=== PATIENT | female | born 1980 ===

== ENCOUNTER 2017-05-25 23:58 | Emergency (ER) | payer SELFPAY ==
[2017-05-26 00:04] VITALS: BMI 24.7
[2017-05-26 00:06] VITALS: PULSE 87; RESP 16; TEMP 98.4; O2SAT 99
[2017-05-26 00:20] VITALS: BP 143/91
--- NOTE | 2017-05-26 00:40 | ED PDOC ---
HPI: Eye Injury/Pain Time Seen by Provider: 05/26/17 00:10 Chief Complaint (Nursing): Eye Problem Chief Complaint (Provider): Eye Problem History Per: Patient History/Exam Limitations: no limitations Onset/Duration Of Symptoms: Days (x2) Current Symptoms Are (Timing): Still Present Injury To Eye?: No Wears Contact Lens?: No Associated Symptoms: Discharge From Eye Additional Complaint(s): 37 year old female presents to ED with complaints of atraumatic left eye problems x2 days and has no relevant past medical history. (+) redness and drainage. (-) visual contacts and headache. Patient denies wearing contacts. PCP: Renetta Bell Past Medical History Reviewed: Historical Data, Nursing Documentation, Vital Signs Vital Signs: Last Vital Signs Temp 98.4 F 05/26/17 00:04 Pulse 87 05/26/17 00:04 Resp 16 05/26/17 00:04 BP 143/91 H 05/26/17 00:17 Pulse Ox 99 05/26/17 00:04 - Medical History PMH: Diabetes (Gestational) Denies: No Chronic Diseases, Chronic Kidney Disease - Family History Family History: States: No Known Family Hx - Social History Current smoker - smoking cessation education provided: No Ex-Smoker (has not smoked in the last 12 months): No Alcohol: None Drugs: Denies - Home Medications Home Medications: Ambulatory Orders Medication Instructions Recorded No122/Iron/Folic Acid 1 tab .ROUTE DAILY 07/20/16 [ Multi Tablet] Ibuprofen [Motrin] 600 mg PO Q6H PRN #30 tab 07/22/16 Polymyxin/Trimethoprim Sulfate 1 drop XX Q6H 10 Days 05/26/17 [Polytrim Ophth Soln] - Allergies Allergies/Adverse Reactions: Allergies Allergy/AdvReac Type Severity Reaction Status Date / Time No Known Allergies Allergy Verified 05/26/17 00:04 Review of Systems ROS Statement: Except As Marked, All Systems Reviewed And Found Negative Eyes: Positive for: Redness (left eye redness), Other (left eye drainage). Negative for: Vision Change Neurological: Negative for: Headache Physical Exam - Reviewed Nursing Documentation Reviewed: Yes Vital Signs Reviewed: Yes - Physical Exam Appears: Positive for: Non-toxic, No Acute Distress Skin: Positive for: Normal Color, Warm, Dry Eye Exam: Positive for: EOMI, PERRL, Other (left eye has clear drainage). Negative for: Normal appearance (left eye erythema) ENT: Positive for: Normal ENT Inspection Neck: Positive for: Normal Respiratory: Negative for: Respiratory Distress Neurologic/Psych: Positive for: Alert, Oriented - ECG O2 Sat by Pulse Oximetry: 99 (RA) Pulse Ox Interpretation: Normal Medical Decision Making Medical Decision Makin Initial impression: conjunctivitis Initial plan: * visual acuity test Scribe Attestation: Documented by Patricia Mao acting as a scribe for Phyllis Albrecht PA-C. MD Scribe Attestation: All medical record entries made by the Scribe were at my direction and personally dictated by me. I have reviewed the chart and agree that the record accurately reflects my personal performance of the history, physical exam, medical decision making, and the department course for this patient. I have also personally directed, reviewed, and agree with the discharge instructions and disposition. Disposition - Clinical Impression Clinical Impression: Conjunctivitis - Disposition Referrals: Renetta Bell MD [Primary Care Provider] - Disposition Time: 00:37 Condition: GOOD Prescriptions: Polymyxin/Trimethoprim Sulfate [Polytrim Ophth Soln] 1 drop XX Q6H 10 Days Instructions: Conjunctivitis (ED) Forms: [facility] (Belarusian)
== END 2017-05-26 00:55 | disposition home or self-care (01) ==
LOC: H.ER 23:58
DX: H10.9 Unspecified conjunctivitis (principal)

== ENCOUNTER 2017-08-29 06:09 | Emergency (ER) | payer OTHER ==
[2017-08-29 06:10] VITALS: BMI 24.7
[2017-08-29 06:22] VITALS: BP 126/77; PULSE 103; RESP 20; TEMP 96.1; O2SAT 96
[2017-08-29] MEDS ORDERED: Sodium Chloride 0.9% 1,000 ML IV STA (06:32)
--- NOTE | 2017-08-29 06:37 | ED PDOC ---
HPI: Abdomen Time Seen by Provider: 08/29/17 06:27 Chief Complaint (Nursing): Abdominal Pain Chief Complaint (Provider): Diarrhea History Per: Patient History/Exam Limitations: no limitations Onset/Duration Of Symptoms: Hrs (x24) Additional Complaint(s): 37 year old [place] female with no medical history, presents to the ED with estimated gestational age of 16 weeks. She reports 7 episodes of loose watery diarrhea which started yesterday. Patient feels nauseous and generally weak. Reports some stomach cramps with the diarrhea. Patient denies any associated vaginal bleeding, discharge, or urinary symptoms. PMD: Renetta Bell MD Past Medical History Reviewed: Historical Data, Nursing Documentation, Vital Signs Vital Signs: Last Vital Signs Temp 96.1 F L 08/29/17 06:18 Pulse 103 H 08/29/17 06:18 Resp 20 08/29/17 06:18 BP 126/77 08/29/17 06:18 Pulse Ox 96 08/29/17 07:09 - Medical History PMH: Diabetes (Gestational) Denies: Chronic Kidney Disease - Surgical History Surgical History: No Surg Hx - Family History Family History: States: Unknown Family Hx - Social History Current smoker - smoking cessation education provided: No Alcohol: None Drugs: Denies - Home Medications Home Medications: Ambulatory Orders Medication Instructions Recorded No122/Iron/Folic Acid 1 tab .ROUTE DAILY 07/20/16 [ Multi Tablet] Ibuprofen [Motrin] 600 mg PO Q6H PRN #30 tab 07/22/16 Polymyxin/Trimethoprim Sulfate 1 drop XX Q6H 10 Days bottle 05/26/17 [Polytrim Ophth Soln] - Allergies Allergies/Adverse Reactions: Allergies Allergy/AdvReac Type Severity Reaction Status Date / Time No Known Allergies Allergy Verified 08/29/17 06:18 Review of Systems ROS Statement: Except As Marked, All Systems Reviewed And Found Negative Constitutional: Positive for: Weakness (generalized) Gastrointestinal: Positive for: Nausea, Abdominal Pain, Diarrhea Genitourinary Female: Negative for: Dysuria, Frequency, Hematuria, Vaginal Discharge, Vaginal Bleeding Physical Exam - Reviewed Nursing Documentation Reviewed: Yes Vital Signs Reviewed: Yes - Physical Exam Appears: Positive for: Non-toxic, No Acute Distress Head Exam: Positive for: ATRAUMATIC, NORMOCEPHALIC Skin: Positive for: Normal Color, Warm, Dry Eye Exam: Positive for: EOMI, Normal appearance, PERRL Neck: Positive for: Normal, Painless ROM, Supple Cardiovascular/Chest: Positive for: Regular Rate, Rhythm. Negative for: Murmur Respiratory: Positive for: Normal Breath Sounds. Negative for: Accessory Muscle Use, Respiratory Distress Gastrointestinal/Abdominal: Positive for: Soft, Other (Gravid abdomen). Negative for: Tenderness Back: Positive for: Normal Inspection. Negative for: L CVA Tenderness, R CVA Tenderness, Vertebral Tenderness Extremity: Positive for: Normal ROM. Negative for: Pedal Edema, Deformity Neurologic/Psych: Positive for: Alert, Oriented - Laboratory Results Result Diagrams: 08/29/17 07:07 08/29/17 07:07 - ECG O2 Sat by Pulse Oximetry: 96 (RA) Pulse Ox Interpretation: Normal Medical Decision Making Medical Decision Making: Time: 6:32 Initial Impression: 37 year old female with diarrheal illness in Initial Plan: --CMP --CBC --Urinalysis --NS IV 1000 ml at 1000 mls/hr --Bentyl 20 mg PO --Reglan 10 mg IV --Pending reevaluation Time: 7:00 Patient is signed out by me to Dr. Sanchez, pending labs and reevaluation. Scribe Attestation: Documented by Freya Singh, acting as a scribe for Sivakumar Mcduffie MD Provider Scribe Attestation: All medical record entries made by the Scribe were at my direction and personally dictated by me. I have reviewed the chart and agree that the record accurately reflects my personal performance of the history, physical exam, medical decision making, and the department course for this patient. I have also personally directed, reviewed, and agree with the discharge instructions and disposition. Disposition - Clinical Impression Clinical Impression: Diarrhea - Disposition Referrals: Renetta Bell MD [Primary Care Provider] - Disposition: Transfer of Care Disposition Time: 07:00 Condition: FAIR Additional Instructions: Hydrate well. Follow up with your PCP in 2-3 days. Patient Signed Over To: Aniya Sanchez (Pending labs and reevaluation)
--- NOTE | 2017-08-29 07:09 | ED PDOC ---
- ECG O2 Sat by Pulse Oximetry: 96 (RA) Pulse Ox Interpretation: Normal Medical Decision Making Medical Decision Making: Receiving sign out: Patient signed out to me by Dr. Mcduffie at 0700 pending labs and reevaluation. Scribe Attestation: Documented by Jackelin Bella acting as a scribe for Aniya Sanchez MD. Provider Attestation: All medical record entries made by the Scribe were at my direction and personally dictated by me. I have reviewed the chart and agree that the record accurately reflects my personal performance of the history, physical exam, medical decision making, and the department course for this patient. I have also personally directed, reviewed, and agree with the discharge instructions and disposition. Disposition - Disposition Referrals: Renetta Bell MD [Primary Care Provider] - Forms: [facility] (Malagasy)
[2017-08-29 07:27] LABS: BILIRUBIN,TOTAL 1.4 mg/dl (0.2-1.3); CALCIUM 8.7 mg/dL (8.4-10.2); CARBON DIOXIDE 18 mmol/L (22-30); CHLORIDE 109 mmol/L (98-107); GFR AFRICAN-AMERICAN > 60; GLUCOSE,RANDOM 121 mg/dL (65-105); SODIUM 137 mmol/l (132-148)
[2017-08-29 07:29] LABS: ALB/GLOB RATIO 1.1 (1.0-2.1); ALKALINE PHOSPHATASE 93 U/L (38-126); ALT/SGPT 35 U/L (9-52); AST/SGOT 49 U/L (14-36); BLOOD UREA NITROGEN 11 mg/dl (7-17); POTASSIUM 4.5 MMOL/L (3.6-5.0); TOTAL PROTEIN 8.6 G/DL (6.3-8.2)
[2017-08-29 07:34] LABS: BASO % 0.2 % (0.0-2.0); EOS % 0.2 % (0.0-4.0); HEMATOCRIT 37.5 % (34.0-47.0); LYMPH # 0.4 K/uL (1.0-4.3); LYMPH % 3.6 % (20.0-40.0); MEAN CELL VOLUME 87.8 fl (81.0-99.0); MEAN CORPUSCULAR HEMOGLOBIN 28.5 pg (27.0-31.0); MEAN CORPUSCULAR HGB CONC 32.5 g/dL (33.0-37.0); MEAN PLATELET VOLUME 7.8 fl (7.2-11.7); MONO # 0.5 K/uL (0.0-0.8); MONO % 4.3 % (0.0-10.0); NEUT # 10.6 K/uL (1.8-7.0); NEUT % 91.7 % (50.0-75.0); PLATELET COUNT 216 K/uL (130-400); RED CELL DISTRIBUTION WIDTH 13.6 % (11.5-14.5); WHITE BLOOD COUNT 11.5 K/uL (4.8-10.8)
[2017-08-29 07:42] LABS: RBC URINE 4 /hpf (0-3); URINE BACTERIA RARE (<OCC); URINE BILIRUBIN NEGATIVE (NEGATIVE); URINE BLOOD SMALL (NEGATIVE); URINE COLOR YELLOW (YELLOW); URINE GLUCOSE (UA) NEG (Normal); URINE KETONE NEGATIVE (NEGATIVE); URINE LEUKOCYTE ESTERASE NEG Leu/uL (Negative); URINE PROTEIN NEGATIVE (NEGATIVE); URINE UROBILINOGEN 0.2-1.0 mg/dL (0.2-1.0); WBC URINE 1 /hpf (0-5)
[2017-08-29 10:11] LABS: EOSINOPHIL 1 % (0-7); NEUTROPHIL 85 % (42-75); TOTAL CELLS COUNTED 100
[2017-08-29 10:12] LABS: LARGE PLATELETS PRESENT
== END 2017-08-29 10:36 | disposition home or self-care (01) ==
LOC: H.ER 06:09
DX: R19.7 Diarrhea, unspecified (principal); Z33.1 Pregnant state, incidental
CPT/HCPCS: 80053; 81003; 85025; 96374; 99283; J2765; J7040

== ENCOUNTER 2017-09-30 18:02 | Emergency (ER) | payer OTHER ==
[2017-09-30 19:22] VITALS: BMI 27.3
[2017-09-30 19:53] LABS: SQUAMOUS EPITHIAL < 1 /hpf (0-5); URINE BILIRUBIN NEGATIVE (NEGATIVE); URINE BLOOD NEGATIVE (NEGATIVE); URINE CLARITY CLEAR (Clear); URINE COLOR STRAW (YELLOW); URINE GLUCOSE (UA) NEG (Normal); URINE LEUKOCYTE ESTERASE NEG Leu/uL (Negative); URINE NITRATE NEGATIVE (NEGATIVE); URINE PROTEIN NEGATIVE (NEGATIVE); URINE UROBILINOGEN 0.2-1.0 mg/dL (0.2-1.0)
[2017-10-01 02:09] VITALS: BP 113/66; PULSE 76; RESP 18; TEMP 98.3; O2SAT 99
--- NOTE | 2017-10-01 08:07 | OBHP ---
Datetime: 09/30/2017 21:02 IP Admit Plan: Discharge home Abdomen - PN: Normal Back - PN: Normal Lungs - PN: Normal Heart - PN: Normal Thyroid - PN: Normal Neurologic - PN: Normal HEENT - PN: Normal General - PN: Normal Membranes, Provider: Intact Pool Provider: Negative EGA AdmitDate IP: 20.4 Vital Signs Provider: Reviewed; Within Normal Limits Dilatation, Provider: 0 Datetime: 09/30/2017 19:00 IP Adm Impression: , intrauterine ; No Active Labor; Intact Membranes Admit Comment, IP Provider: CC: 37 yo EGA 20.4 confirmed by US presents to the ED with diffuse abodminal pain. She shares that a few hours before arriving, a dog tried to attack her, frightening h er. She immediately felt diffuse abdominal pain and the described the pain to feel like contractions. She denies falling or being bitten by the dog. LMP 05/09/2017 +: FM; -: VB, LOF, recent intercourse PNC: [facility] at [facility] POBHX: X2; GDM for second managed by diet along GHX/PAP: denies STIS, pap 04/2017: negative MHX: none. Surg: none Soc: denies: smoking, alcohol, illicit drugs Rx: PNV Allergies: NKDA Fam Hx: none PE: HEENT: normocephalic, PERRLA; AAOx3 Heart: no murmurs, regular rate and rhythm, S1, S2 normal. Lungs: clear to auscultation bilaterally, no wheezing Abdomen: nontender, gravid CVA: negative Lower extremities: negative for pitting edema Vitals: 113/66 74 bpm 37 yo EGA 20.4 confirmed by US presents to the ED with diffuse abodminal pain. -speculum exam reveals closed cervix. no pooling of fluid in the vaginal canal -UA pending. case dw Dr. Kee Roblero MD Family Medicine, [facility] - Pt seen with PGY1. Agree with note MAHNDO. No signs of acute abdomen - no trauma (just frightened/increase intraabd pressure - holding her breath)late entry for Sep 30 Pelvic Type - PN: Adequate Extremities - PN: Normal Breast - PN: Not Done FHR - Baseline A Provider: + IP Chief Complaint: Trauma/Fall Genitourinary Exam: Normal DTRs - PN: Not Done
== END 2017-09-30 19:40 | disposition home or self-care (01) ==
LOC: H.EROB2 18:02 → H.EROB 18:45 → H.EROB2 19:40
DX: O26.92 Pregnancy related conditions, unspecified, second trimester (principal); R10.2 Pelvic and perineal pain; Z3A.20 20 weeks gestation of pregnancy; Z86.32 Personal history of gestational diabetes; W54.8XXA Other contact with dog, initial encounter

== ENCOUNTER 2017-12-28 11:23 | Emergency (ER) | payer OTHER ==
[2017-12-28 12:19] VITALS: BMI 29.7
[2017-12-28] MEDS: Lactated Ringer's 1,000 ML IV SCH ×2 (12:30→13:15)
[2017-12-28 13:29] LABS: PH,URINE 6.5 (5.0-8.0); URINE BILIRUBIN NEGATIVE (NEGATIVE); URINE BLOOD NEGATIVE (NEGATIVE); URINE CLARITY Clear (Clear); URINE COLOR LIGHT YELLOW (YELLOW); URINE GLUCOSE (UA) NEGATIVE (Normal); URINE LEUKOCYTE ESTERASE NEGATIVE Leu/uL (Negative); URINE PROTEIN NEGATIVE (NEGATIVE); URINE UROBILINOGEN 0.2 mg/dL (0.2-1.0)
[2017-12-28 14:01] LABS: SPECIMEN COMMENT OPAQUE SPECIMEN
--- NOTE | 2017-12-28 16:48 | OBHP ---
Datetime: 12/28/2017 12:00 IP Adm Impression: , intrauterine ; No Active Labor IP Admit Plan: Observation/Evaluation Admit Comment, IP Provider: 37 y/o F at 33.2 weeks GA, with KELLI 02/13/18by LMP and confirmed by 12 weeks-US, c/o uterine CTX's cince 8 AM, every 5 minutes and 8/10 intensity. No LOF or VB. FM pres ent. Pt denies fever, headache, dizziness, visual disturbances, CP, SOB, urinary complaints or rash. All systems reviewed and negative except as above NKDA Meds: PNV PN Care: with Dr cMcoy at [facility]. OBHx: . 3x at _ 38.4 weeks GA. 1x spontaneous . Hx of GDM in previous pregnan cy. PMHx: elevated BP but no HTN. Pt's BP have been stable during current . PSHx: denied FHx: NC SHx: No tobacco, alcohol or rec drugs. A/P 37 y/o F with IUP at 33.2 weeks GA, with frequent CTX, need to r/o Pre-term labor. --Observation --FHT continous monitoring. --IV Fluids, 2 bolus of 1 liter LR. --Urinalysis and fibronectin ordered. Case discussed with Dr Hairston, OB conveyancer GTolentino PGY-1. Addendum: I saw and examined patient at presentation. fibronectin negative. No evidence of lab or at this time. Plan to continue observation. Marika Pelvic Type - PN: Adequate Extremities - PN: Normal Abdomen - PN: Normal Back - PN: Normal Lungs - PN: Normal Neurologic - PN: Normal HEENT - PN: Normal General - PN: Normal FHR - Baseline A Provider: 140 Membranes, Provider: Intact Contraction Comments Provider: every 6 minutes Comments, ACOG Physical Exam: Speculum exam: no gross pooling, cervix close, no traces of bleeding. Sample obtained for FFN. Pool Provider: Negative IP Hx Assessment: The History has been Reviewed and is Current EGA AdmitDate IP: 33.2 Vital Signs Provider: Reviewed IP Chief Complaint: Uterine contractions NICHD Variability Prov Fetus A: Moderate 6-25bpm NICHD Accel Fetus A IP Provider: 15X15 FHR Category Provider Fetus A: Category I Dilatation, Provider: 0 Effacement, Provider: thick Station, Provider: high
[2017-12-28] MEDS ORDERED: Lactated Ringer's 1,000 ML IV SCH (17:00)
--- NOTE | 2017-12-28 20:43 | OBPN ---
Datetime: 12/28/2017 18:37 IP Progress Plan: Discharge Contraction Comments Provider: ctxing q 2-5 mins FHR - Baseline A Provider: 135 IP Progress Note Comment: Patient evaluated, comfortable. Denies Contractions, bleeding, leaking, +F M. UA and FFN negative. Patient closed on exam - FHr = 135 mod chivo, +accels, no decels. Campos q 2-5 mins but not making cervical change. vitals nml, no evidence of chorio or labor. Discharge home, discharge instructions reviewed, pt has appt with clinic 4/5 Vital Signs Provider: Reviewed; Within Normal Limits NICHD Accel Fetus A IP Provider: 15X15 NICHD Variability Prov Fetus A: Moderate 6-25bpm Dilatation, Provider: closed Datetime: 12/28/2017 12:00 Pool Provider: Negative Membranes, Provider: Intact FHR Category Provider Fetus A: Category I Effacement, Provider: thick Station, Provider: high
--- NOTE | 2017-12-28 20:45 | OBDCSUM ---
Datetime: 12/28/2017 19:15 Discharged to, Provider: Home Follow up at, Provider: [facility] Disch Instr Activity: Normal activity Disch Instr Diet: Regular Discharge Time: 12/28/2017 19:20 Follow up in weeks, Provider: 01/01/18- Disch Referrals: None Discharge Diagnosis Prov Other: false labor
[2017-12-29 00:20] VITALS: BP 120/55; PULSE 88; RESP 16; TEMP 98.2; O2SAT 99
== END 2017-12-28 19:20 | disposition home or self-care (01) ==
LOC: H.EROB2 11:23
DX: O26.93 Pregnancy related conditions, unspecified, third trimester (principal); R10.2 Pelvic and perineal pain; Z3A.33 33 weeks gestation of pregnancy; O09.92 Supervision of high risk pregnancy, unspecified, second trimester
CPT/HCPCS: 81003; 82731; 99283; J7120

== ENCOUNTER 2018-01-25 11:27 | Emergency (ER) | payer OTHER ==
[2018-01-25 12:00] VITALS: BMI 30.4
[2018-01-25 17:20] VITALS: BP 109/68; PULSE 81; RESP 16; TEMP 98.1; O2SAT 97
--- NOTE | 2018-01-25 20:24 | OBHP ---
Datetime: 01/25/2018 12:50 IP Adm Impression: Term, intrauterine IP Admit Plan: Observation/Evaluation; Discharge home Admit Comment, IP Provider: 37 yo at 37.2 weeks GA, with KELLI 02/13/18 by LMP and confirmed b y 12 weeks-US presents to [facility] w/ c/o uterine CTX every 5-6 minutes since 8:30 am this moring. Report s +FM. No LOF or VB. Denies chest pain, dyspnea, headache, dizziness, blurry vision, nausea or vomit ing. All systems reviewed and negative except as above Allergies:NKDA Meds: PNV PN Care: with Dr Mccoy at [facility], next visit on 01/30/18 OBHx: . x 2 at _ 38.4 weeks GA. 1x spontaneous . Hx of GDM in previous pregna ncy. PMHx: elevated BP but no HTN. Pt's BP have been stable during current . PSHx: denied FHx: Denies hx DMII or CAD. SHx: No tobacco, alcohol or rec drugs. Assessment: 37 yo IUP at 37.2 weeks GA presents for uterine CTX since this morning, not in active lab or. Plan: SVE: FT/25/high Continuous heart tracing is reactive and reassuring. Pt is stable to discharge home with f/u with her doctor on 01/30/18. Labor precaution given. Pt seen and examined with on-call OB hospitalist Dr. Hairston Abdomen - PN: Normal Back - PN: Normal Lungs - PN: Normal Heart - PN: Normal Neurologic - PN: Normal HEENT - PN: Normal General - PN: Normal FHR - Baseline A Provider: 130s Membranes, Provider: Intact Contraction Comments Provider: Q6-7 MIN Comments, ACOG Physical Exam: Lower leg: Mild edema of B/L lower leg ( R>L) IP Hx Assessment: The History has been Reviewed and is Current EGA AdmitDate IP: 37.2 Vital Signs Provider: Reviewed IP Chief Complaint: Uterine contractions NICHD Variability Prov Fetus A: Minimal - Undetectable to <5bpm NICHD Accel Fetus A IP Provider: 15X15 FHR Category Provider Fetus A: Category I NICHD Decel Fetus A IP Provider: None Dilatation, Provider: FT Effacement, Provider: 25 Station, Provider: [facility]
== END 2018-01-25 13:19 | disposition home or self-care (01) ==
LOC: H.EROB2 11:27 → H.L&D 11:37 → H.EROB2 13:19
DX: O47.1 False labor at or after 37 completed weeks of gestation (principal); Z3A.37 37 weeks gestation of pregnancy; O26.93 Pregnancy related conditions, unspecified, third trimester; R10.2 Pelvic and perineal pain

== ENCOUNTER 2018-02-04 21:31 | Emergency (ER) | payer OTHER ==
[2018-02-04 22:43] VITALS: BMI 30.8
--- NOTE | 2018-02-04 22:53 | OBHP ---
Datetime: 02/04/2018 22:13 IP Adm Impression: Term, intrauterine Admit Comment, IP Provider: 38 yo with IUP at 38.5 weeks GA, with KELLI 02/13/18 by LMP and co nfirmed by 12 weeks-US presents to [facility] w/ c/o passing bloody mucus at 530 pm and ctx starting 6 pm, about 6 min apart. Denies loss of fluid reports good movement. Denies chest pain, dyspnea, headache, dizziness, blurry vision, nausea or vomiting. care: Dr Mccoy at [facility] OBHx: . x 2 at _ 38+ weeks. SAB x1. Hx of GDM in previous . PMHx: elevated BP PSHx: denied FHx: noncontributory SHx: denies tobacco, alcohol or drug use Allergies: NKDA Meds: PNV A/P: 38 yo IUP at 38+ weeks gestational age, with elevated BP SVE: 2cm, 60%, -2 Monitor FHR and toco Urinalysis Pt discussed /seen w/ Dr. Hernandez. Extremities - PN: Normal Lungs - PN: Normal Heart - PN: Normal Thyroid - PN: Not Done Neurologic - PN: Normal HEENT - PN: Normal General - PN: Normal IP Hx Assessment: The History has been Reviewed and is Current EGA AdmitDate IP: 38.5 IP Chief Complaint: Maternal discomfort Dilatation, Provider: 1 Effacement, Provider: 60 Station, Provider: -2 Genitourinary Exam: Normal
[2018-02-04 23:29] LABS: SQUAMOUS EPITHIAL 1 /hpf (0-5); URINE BACTERIA OCC (<OCC); URINE BILIRUBIN NEGATIVE (NEGATIVE); URINE BLOOD SMALL (NEGATIVE); URINE CLARITY CLEAR (Clear); URINE COLOR STRAW (YELLOW); URINE GLUCOSE (UA) NEG (Normal); URINE LEUKOCYTE ESTERASE NEG Leu/uL (Negative); URINE PROTEIN NEGATIVE (NEGATIVE); URINE UROBILINOGEN 0.2-1.0 mg/dL (0.2-1.0)
[2018-02-05 01:28] LABS: BASO % 0.3 % (0.0-2.0); EOS # 0.2 K/uL (0.0-0.7); EOS % 1.7 % (0.0-4.0); HEMOGLOBIN 11.7 g/dL (12.0-16.0); LYMPH # 2.1 K/uL (1.0-4.3); LYMPH % 22.6 % (20.0-40.0); MEAN CELL VOLUME 84.2 fl (81.0-99.0); MEAN CORPUSCULAR HEMOGLOBIN 28.4 pg (27.0-31.0); MEAN CORPUSCULAR HGB CONC 33.7 g/dL (33.0-37.0); MEAN PLATELET VOLUME 7.5 fl (7.2-11.7); MONO # 0.7 K/uL (0.0-0.8); MONO % 7.5 % (0.0-10.0); NEUT # 6.3 K/uL (1.8-7.0); NEUT % 67.9 % (50.0-75.0); RBC 4.13 Mil/uL (3.80-5.20); RED CELL DISTRIBUTION WIDTH 13.9 % (11.5-14.5); WHITE BLOOD COUNT 9.3 K/uL (4.8-10.8)
[2018-02-05 01:38] LABS: ALT/SGPT 36 U/L (9-52); AST/SGOT 29 U/L (14-36); BLOOD UREA NITROGEN 7 mg/dl (7-17); CALCIUM 9.2 mg/dL (8.4-10.2); GFR AFRICAN-AMERICAN > 60; GFR NON-AFRICAN AMERICAN > 60
[2018-02-05 09:14] VITALS: BP 118/78; PULSE 91; O2SAT 99
== END 2018-02-05 02:32 | disposition home or self-care (01) ==
LOC: H.EROB2 21:31
DX: O24.419 Gestational diabetes mellitus in pregnancy, unspecified control (principal); Z3A.38 38 weeks gestation of pregnancy; O47.1 False labor at or after 37 completed weeks of gestation

== ENCOUNTER 2018-02-06 18:01 | Inpatient (IN) | payer OTHER ==
[2018-02-06] MEDS: Lactated Ringer's 1,000 ML IV SCH (19:00)
[2018-02-06 19:44] LABS: BASO % 0.5 % (0.0-2.0); EOS # 0.1 K/uL (0.0-0.7); EOS % 1.5 % (0.0-4.0); HEMOGLOBIN 11.7 g/dL (12.0-16.0); LYMPH % 20.9 % (20.0-40.0); MEAN CELL VOLUME 83.7 fl (81.0-99.0); MEAN CORPUSCULAR HEMOGLOBIN 28.7 pg (27.0-31.0); MEAN CORPUSCULAR HGB CONC 34.3 g/dL (33.0-37.0); MEAN PLATELET VOLUME 7.7 fl (7.2-11.7); MONO # 0.7 K/uL (0.0-0.8); MONO % 7.4 % (0.0-10.0); NEUT # 6.6 K/uL (1.8-7.0); NEUT % 69.7 % (50.0-75.0); NRBC % 0.1 % (0.0-0.0); RBC 4.1 Mil/uL (3.80-5.20); RED CELL DISTRIBUTION WIDTH 13.9 % (11.5-14.5); WHITE BLOOD COUNT 9.5 K/uL (4.8-10.8)
--- NOTE | 2018-02-06 21:49 | OBADHP ---
Datetime: 02/06/2018 19:09 Admit Comment, IP Provider: 38 yo with IUP at 39.0 weeks gestational age, with KELLI 02/13/18 by LMP and confirmed by 12 weeks-US presents to L_D for induction of labor. Denies loss of fluid, sta karsten she passed mucus plug yesterday but denies vaginal bleeding. Reports good movement. Denies chest pain, dyspnea, headache, dizziness, blurry vision, nausea or vomiting. care: Dr Mccoy at [facility] OBHx: . x 2 at _ 38+ weeks. SAB x1. Hx of GDM in previous . PMHx: elevated BP PSHx: denied FHx: noncontributory SHx: denies tobacco, alcohol or drug use Allergies: NKDA Meds: PNV A/P: 38 yo IUP at 38+ weeks gestational age. Admit to L_D unit; induction. -[email or web address] Attending Note: Pt sent here for induction of labor due to AMA with elevated urine proteins. Agrees with Above. For cervical ripening with cervidil. Cameron Cool MD. Pt Extremities - PN: Normal Abdomen - PN: Normal Back - PN: Normal Lungs - PN: Normal Heart - PN: Normal Neurologic - PN: Normal HEENT - PN: Normal General - PN: Normal IP Hx Assessment: The History has been Reviewed and is Current IP Chief Complaint: Scheduled induction of labor Genitourinary Exam: Normal EGA AdmitDate IP: 39.0 IP Adm Impression: Term, intrauterine ; No Active Labor IP Admit Plan: Admit to unit; Initiate labor induction protocol Datetime: 02/04/2018 22:13 Thyroid - PN: Not Done Vital Signs Provider: Reviewed Dilatation, Provider: 1 Effacement, Provider: 60 Station, Provider: -2 Datetime: 01/25/2018 12:50 FHR - Baseline A Provider: 130s Membranes, Provider: Intact Contraction Comments Provider: Q6-7 MIN Comments, ACOG Physical Exam: Lower leg: Mild edema of B/L lower leg ( R>L) NICHD Variability Prov Fetus A: Minimal - Undetectable to <5bpm NICHD Accel Fetus A IP Provider: 15X15 FHR Category Provider Fetus A: Category I NICHD Decel Fetus A IP Provider: None Datetime: 12/28/2017 12:00 Pelvic Type - PN: Adequate Pool Provider: Negative Datetime: 09/30/2017 19:00 Breast - PN: Not Done DTRs - PN: Not Done
[2018-02-06] MEDS ORDERED: Oxytocin 30 units/LR 500ML 30 U/500 ML BAG IV PRN (22:47)
[2018-02-07] MEDS: Lactated Ringer's 1,000 ML IV SCH (03:00)
[2018-02-07] MEDS ORDERED: Lactated Ringer's 1,000 ML IV SCH ×2 (05:45→13:26)
[2018-02-07] MEDS ORDERED: Fentanyl/Bupivacaine HCl 250 ML EPI ONE (06:33)
[2018-02-07] MEDS ORDERED: Bupivacaine HCl 0.25% PF (10 ml) Inj ONE (06:33)
[2018-02-07] MEDS ORDERED: ceFAZolin 2 GM in Sodium Chloride 0.9% 100 ML IVPB ONE (07:45)
[2018-02-07] MEDS ORDERED: Oxycodone/Acetaminophen 5/325 mg Tab PO PRN ×2 (08:08→13:26)
[2018-02-07] MEDS ORDERED: Benzocaine/Menthol SPRAY TOP PRN ×2 (08:08→13:26)
--- NOTE | 2018-02-08 07:54 | RAD ---
HISTORY: COMPARISON: No prior. FINDINGS: LUNGS: No active pulmonary disease. PLEURA: No significant pleural effusion identified, no pneumothorax apparent. CARDIOVASCULAR: Normal. OSSEOUS STRUCTURES: No significant abnormalities. VISUALIZED UPPER ABDOMEN: Normal. OTHER FINDINGS: None. IMPRESSION: No active disease.
[2018-02-08 07:55] LABS: BASO % 0.4 % (0.0-2.0); EOS # 0.2 K/uL (0.0-0.7); EOS % 1.9 % (0.0-4.0); HEMOGLOBIN 10.3 g/dL (12.0-16.0); LYMPH % 17.8 % (20.0-40.0); MEAN CELL VOLUME 84.2 fl (81.0-99.0); MEAN CORPUSCULAR HEMOGLOBIN 28.6 pg (27.0-31.0); MEAN PLATELET VOLUME 7.6 fl (7.2-11.7); MONO # 0.7 K/uL (0.0-0.8); MONO % 6.2 % (0.0-10.0); NEUT # 8.1 K/uL (1.8-7.0); NEUT % 73.7 % (50.0-75.0); RBC 3.61 Mil/uL (3.80-5.20); RED CELL DISTRIBUTION WIDTH 13.9 % (11.5-14.5)
--- NOTE | 2018-02-09 11:23 | OBPPN ---
Datetime: 02/09/2018 06:39 PP Pain Prov: Within normal limits PP Nausea Prov: Denies PP Flatus Prov: Yes PP BM Prov: No PP Impression Prov: Normal progression PP Plan Prov: Discharge PP Progress Note Prov: PPD 2 S: 38 y/o female s/p on 11/10/17 evaluated on PPD2. Pt was seen and examined at [facility] this AM. No overnight events. Pt reports mild abdominal pain, but well controlled with pain meds. Ambulating. Breast feeding (with formula supplementation) without difficulty. Lochia is similar to me nses volume. No BM, but pasting gas per rectum. Denies fever/chills, diarrhea, nausea/vomiting, ches t pain, dyspnea, and dizziness. Pt would like circumcision for baby boy (not yet received). O: VS: stable GEN: NAD Cardio: S1S2, no murmurs Lungs: clear breath sounds b/l, no wheezing Abdomen: BS+, appropriate tenderness to palpation. Uterus is firm and at the level of the umbilic us. EXT: No edema, calves nontender NEURO/PSYCH: AAOx3, no grossly focal deficits, preserved affect and mood. H/H (post ): 10.3/30.4 Cxray wnl (hx of +ppd) Assessment/Plan: 38 y/o female s/p , doing well on PPD1. Pt remains afebrile, tolerat ing pain with medication. Asymptomatic anemia, will continue to monitor. Tolerating diet. Anticipati ng d/c today. Continue with current management Encourage and ambulating Motrin 600mg q6 and Percocet q4 for pain. Senakot 17.2 mg PO HS Discharge to home today Case d/w OB Hospitalist Moshe Nolan, PGY1 Patient seen and evaluated this am. Patient PPD #2, for discharge home today. Baby for circ prior to discharge Patient to continue pain meds as needed. Encouraged breast feeding. RTC ([facility]) in 6 wks for visit) -Dr. Kenzie Bee IP PP Procedures: None Vital Signs Provider PP: Reviewed Vital Signs Provider Details PP: 1 episode of elevaeted BP 152 systolic. Resolved. Datetime: 02/08/2018 10:14 PP Heart Prov: Normal PP Lungs Prov: Normal PP Abdomen/Uterus Prov: Normal PP Lochia Prov: Normal PP CVA Tenderness Prov: Normal PP Extremities Prov: Normal PP Progress Prov: Normal
--- NOTE | 2018-02-09 12:05 | OBDS ---
DELIVERY PERSONNEL Delivery Doctor: Ally Cool MD Anesthesiologist: Keturah Ortez MD MATERNAL INFORMATION Delivery Anesthesia: Local; Epidural Medications in Delivery: pitocin 30 units in 500 cc LR Estimated Blood Loss (ml): 300 Placenta Cultured: No Maternal Complications: None Provider Comments: Pt was fully dilated with the FHR Tracing having recurrent episodes of albert ycardia. Patient was pushing. A decision to assist with vacuum device to expedite delivery was made. A vacuum device was applied with 10cm/100/+3 and baby was delivered spontaneously after 2 pulls appli ed for less than 15 seconds each. The umbilical cord was entangled around the anterior shoulder. A live male with scores of 9 and 9 was delivered. EBL- 300mls A second degree perineal laceration was repaire with vicryl rapid 2-0 under epidural anesthesia. Pt tolerated the procedure well. LABOR SUMMARY EDC: 02/13/2018 00:00 No. Babies in Womb: 1 LABOR INFORMATION Cervical Ripening Agents: Cervidil (Annotations: Cervidil removed by Dr. Petersen as per Dr. Espinoza h orders ) Group B Beta Strep: Negative VAGINAL DELIVERY Laceration Extension: Second Degree Laceration Type: Perineal Laceration Repair: Yes
[2018-02-09 22:25] VITALS: BP 128/73; PULSE 89; RESP 20; TEMP 99.9; O2SAT 97
== END 2018-02-09 17:10 | disposition home or self-care (01) | DRG 372 ==
LOC: EDSTATUS 18:07 → H.L&D 18:37 → H.OB/GYN 02-07 11:17
PROVIDERS: ADMIT Obstetrics & Gynecology Gynecology; ATTEND Obstetrics & Gynecology Gynecology
PROC: 10D07Z6 Extraction of Products of Conception, Vacuum, Via Natural or Artificial Opening (ICD-10-PCS; principal; 2018-02-06)
PROC: 0KQM0ZZ Repair Perineum Muscle, Open Approach (ICD-10-PCS; 2018-02-06)
PROC: 4A1HXCZ Monitoring of Products of Conception, Cardiac Rate, External Approach (ICD-10-PCS; 2018-02-06)
DX: O76 Abnormality in fetal heart rate and rhythm complicating labor and delivery (principal); O13.4 Gestational [pregnancy-induced] hypertension without significant proteinuria, complicating childbirth; Z3A.39 39 weeks gestation of pregnancy; Z37.0 Single live birth; O70.1 Second degree perineal laceration during delivery